=== PATIENT | male | born 1970 | race Caucasian/White ===

== ENCOUNTER 2016-10-25 07:15 | Emergency (ER) | payer BC ==
[2016-10-25 07:31] VITALS: BP 128/93
--- NOTE | 2016-10-25 07:44 | UC ---
Throat Pain/Nasal Ryne HPI - HPI Summary HPI Summary: awoke with swelling in the back of his throat, feels like his "tonsil" touching his tongue. - History of Current Complaint Chief Complaint: UCRespiratory Stated Complaint: SORE THROAT/TONSILS Time Seen by Provider: 10/25/16 07:38 Hx Obtained From: Patient Onset/Duration: Sudden Onset, Lasting Hours, Still Present Severity: Moderate Pain Intensity: 0 Pain Scale Used: 0-10 Numeric Cough: None Associated Signs & Symptoms: Positive: Dysphagia, FB Sensation - Allergies/Home Medications Allergies/Adverse Reactions: Allergies Allergy/AdvReac Type Severity Reaction Status Date / Time No Known Allergies Allergy Verified 10/25/16 07:21 Home Medications: Home Medications Aspirin [Aspirin 81 MG TAB] 81 mg PO DAILY 10/25/16 [History Confirmed 10/25/16] [id number]-[id number]-Emd C- [Glucosamine Chondroitin] 1 tab PO DAILY [History Confirmed 10/25/16] Loratadine 10 mg PO DAILY 10/25/16 [History Confirmed 10/25/16] Multiple Vitamin [Multi Vitamin] 1 tab PO DAILY 10/25/16 [History Confirmed ] PMH/Surg Hx/FS Hx/Imm Hx Previously Healthy: No - PTX as child, mono - Surgical History Surgical History: None - Family History Known Family History: Positive: Hypertension - Social History Occupation: Employed Full-time Lives: With Family Alcohol Use: Occasionally Substance Use Type: None Smoking Status (MU): Never Smoked Tobacco - Immunization History Most Recent Influenza Vaccination: NO Review of Systems Constitutional: Negative ENT: Other - swelling in back of throat All Other Systems Reviewed And Are Negative: Yes Physical Exam Triage Information Reviewed: Yes Appearance: Well-Appearing, No Pain Distress, Well-Nourished Vital Signs: Initial Vital Signs Temp 97.7 F 10/25/16 07:23 Pulse 79 10/25/16 07:23 Resp 16 10/25/16 07:23 BP 128/93 10/25/16 07:23 Pulse Ox 98 10/25/16 07:23 elevated BP noted Vital Signs Reviewed: Yes ENT: Positive: Hearing grossly normal, Pharyngeal erythema, TMs normal, Other: - uvula edema, hanging below tongue Neck: Positive: Supple, Nontender, No Lymphadenopathy Respiratory: Positive: Lungs clear, Normal breath sounds, No respiratory distress Cardiovascular: Positive: RRR, No Murmur, Pulses Normal, Brisk Capillary Refill Musculoskeletal: Positive: Strength Intact, ROM Intact Neurological: Positive: Alert, Muscle Tone Normal Psychological Exam: Normal Skin Exam: Normal Throat Pain/Nasal Course/Dx - Course Course Of Treatment: rapid A neg. elevated BP noted and pt advised; likely due to distress - Differential Dx/Diagnosis Differential Diagnosis/HQI/PQRI: Other - uvula edema Provider Diagnoses: uvula edema. elevated BP without dx of HTN - Physician Notification/Consults Time Discussed With Above Provider: 07:50 - Mellissa Haile NP Discharge - Discharge Plan Condition: Stable Disposition: AGAINST MEDICAL ADVICE Discharge Disposition Comment: pt to go by private car to [facility]
== END 2016-10-25 08:12 | disposition left against medical advice (07) ==
LOC: UCCORT 07:15
DX: K13.79 Other lesions of oral mucosa (principal); R03.0 Elevated blood-pressure reading, without diagnosis of hypertension
CPT/HCPCS: 87651; 99202; G0463

== ENCOUNTER 2016-11-17 12:30 | Emergency (ER) | payer BC ==
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
--- NOTE | 2016-11-17 13:45 | RAD ---
INDICATION: Spontaneous right chest pain COMPARISON: None TECHNIQUE: PA and lateral views of the chest were obtained. FINDINGS: The heart and mediastinum are normal in size and contour. The lungs are grossly clear. There is no evidence of large pleural effusion. Visualized bones are normal for the patient's age. There is no radiographic evidence of free air beneath the diaphragm IMPRESSION: No radiographic evidence of acute cardiopulmonary disease.
[2016-11-17 14:06] VITALS: BP 129/93
== END 2016-11-17 14:10 | disposition left against medical advice (07) ==
LOC: UCCORT 12:30
DX: K13.79 Other lesions of oral mucosa (principal); R07.89 Other chest pain; L50.9 Urticaria, unspecified
CPT/HCPCS: 71020; 93005; 99212; G0463

== ENCOUNTER 2019-02-15 15:51 | Emergency (ER) | payer BC ==
--- NOTE | 2019-02-15 16:00 | UC ---
Complaint Male HPI - HPI Summary HPI Summary: 49 yo male presents with rectal bleeding. He tells me that he has had BRBPR in the past many years ago and saw his PCP and was told to monitor his symptoms and if continued to come back. His symptoms went away at that time. On 02/12 he had a BM and noticed some rectal discomfort that persisted after he completed his BM. He thought this may be a hemorrhoid so he tried Tucks hemorrhoid pads with good relief. This morning he went to have another BM and his discomfort returned. This afternoon he went to have another BM and had increased pain and bright red blood per rectum. He applied a gauze pad to stop the bleeding and states he has had to change the gauze multiple times within the first half hour. He admits that he strains during BMs and is generally slightly constipated with a BM every 2 or 3 days. He denies fever, chills, weight loss/ gain, abdominal pain, n/v, dysuria. No fam hx of colon cancer. He has never had a colonoscopy. - History of Current Complaint Stated Complaint: PERSONAL Time Seen by Provider: 02/15/19 15:59 Hx Obtained From: Patient Onset/Duration: Gradual Onset Severity Initially: Mild Severity Currently: Mild Pain Intensity: 4 Pain Scale Used: 0-10 Numeric - Allergies/Home Medications Allergies/Adverse Reactions: Allergies Allergy/AdvReac Type Severity Reaction Status Date / Time No Known Allergies Allergy Verified 02/15/19 16:12 Home Medications: Home Medications Acetaminophen [APAP] 650 mg PO ONCE PRN 02/15/19 [History Confirmed 02/15/19] PMH/Surg Hx/FS Hx/Imm Hx - Additional Past Medical History Additional PMH: None - Surgical History Surgical History: None - Family History Known Family History: Positive: Hypertension, Other - DVT/PE in MGM & maternal uncle on coumadin. - Social History Occupation: Employed Full-time Lives: With Family Alcohol Use: Occasionally Substance Use Type: None Smoking Status (MU): Never Smoked Tobacco - Immunization History Most Recent Influenza Vaccination: NO Review of Systems All Other Systems Reviewed And Are Negative: Yes Constitutional: Positive: Negative Skin: Positive: Negative Respiratory: Positive: Negative Cardiovascular: Positive: Negative Genitourinary: Positive: Other - Rectal bleeding Neurovascular: Positive: Negative Neurological: Positive: Negative Psychological: Positive: Negative Physical Exam - Summary Physical Exam Summary: GENERAL: NAD. WDWN. No pain distress. SKIN: No rashes, sores, or open wounds. NECK: Supple. Nontender. No lymphadenopathy. CHEST: CTAB. No r/r/w. No accessory muscle use. Breathing comfortably and in no distress. CV: RRR. Without m/r/g. Pulses intact. Brisk cap refill. ABDOMEN: Soft. NTTP. No distention or guarding. No CVA tenderness. Bowel sounds present RECTAL: Large external hemorrhoid at 10 o'clock position. TTP. Scant bright red blood. NEURO: Alert. PSYCH: Age appropriate behavior. Triage Information Reviewed: Yes Vital Signs: Vital Signs: Temp Pulse Resp BP Pulse Ox 98.1 F 85 16 158/87 98 02/15/19 16:03 02/15/19 16:03 02/15/19 16:03 02/15/19 16:03 02/15/19 16:03 Vital Signs Reviewed: Yes Complaint Male Course/Dx - Course Course Of Treatment: Large external hemorrhoid. Will start him with steroid cream and have him f/u with general surgery. Advised to try miralax or metamucil OTC to relieve constipation and straining during BMs. - Differential Dx/Diagnosis Provider Diagnosis: External hemorrhoid, bleeding Discharge - Sign-Out/Discharge Documenting (check all that apply): Patient Departure All imaging exams completed and their final reports reviewed: No Studies - Discharge Plan Condition: Stable Disposition: HOME Prescriptions: Betamethasone Dipropionate 15 gm TP BID #1 tube Patient Education Materials: Hemorrhoids (ED) Referrals: Hector Goddard MD [Medical Doctor] - As Soon As Possible Keith Boyce MD [Primary Care Provider] - Additional Instructions: If you develop a fever, shortness of breath, chest pain, new or worsening symptoms - please call your PCP or go to the ED immediately. Your blood pressure was high at todays visit. Please see your primary provider within 4 weeks for recheck and re-evaluation. I recommend that you call the General Surgeon at the number below to schedule an appointment within 1-2 weeks for further evaluation - Billing Disposition and Condition Condition: STABLE Disposition: Home
[2019-02-15 16:12] VITALS: BP 158/87
== END 2019-02-15 16:45 | disposition home or self-care (01) ==
LOC: UCCORT 15:51
DX: K64.4 Residual hemorrhoidal skin tags (principal)
CPT/HCPCS: 99212; G0463